=== PATIENT | male | born 1965 | race Caucasian/White ===

== ENCOUNTER 2017-07-14 22:13 | Emergency (ER) | payer BC ==
[~2017-07-14] VITALS: Ht 177.8 cm; Wt 107.5 kg
[2017-07-14 22:16] VITALS: BP 172/109
[2017-07-14] MEDS ORDERED: HYDROCORTISONE30 G9 RECTAL (23:01)
[2017-07-14] MEDS ORDERED: NORCO 5-325 TA1 EACH PO (23:01)
[2017-07-14] MEDS ORDERED: SENNA S TABLET1 EACH PO (23:01)
== END 2017-07-14 23:23 | disposition home or self-care (01) ==
LOC: ER 22:13
DX: K64.5 Perianal venous thrombosis (principal); E11.9 Type 2 diabetes mellitus without complications